=== PATIENT | male | born 1960 | race Caucasian/White ===

== ENCOUNTER 2021-10-13 14:06 | Inpatient (IN) | payer OTHER ==
[~2021-10-13] VITALS: Ht 172.7 cm; Wt 91.8 kg
[2021-10-13 15:06] LABS: Influenza A, PCR NEGATIVE (NEGATIVE); Influenza B, PCR NEGATIVE (NEGATIVE); Resp Syncytial Virus, PCR NEGATIVE (NEGATIVE); SARS-Cov-2 (COVID-19) PCR, MMC NEGATIVE (NEGATIVE)
[2021-10-13 15:26] LABS: International Normalized Ratio 1.13; Prothrombin Time Results 11.8 Sec (9.7-11.5)
[2021-10-13 15:30] LABS: Alanine Aminotransfer (ALT/SGP 156 U/L (12-78); Albumin, Blood 2.6 g/dL (3.4-5.0); Albumin/Globulin Ratio 0.5 (0.8-1.8); Alk Phos 240 U/L (50-136); Anion Gap 11 mmol/L (6-16); Aspartate Aminotrans (AST/SGOT 62 U/L (12-37); Bilirubin, Total 2.8 mg/dL (0.1-1.0); Blood Urea Nitrogen 23 mg/dL (8-24); Bun/Creatinine Ratio 24.4 (12.0-20.0); CO2, Blood 26 mmol/L (21-32); Calcium, Blood 10.1 mg/dL (8.5-10.1); Chloride, Blood 94 mmol/L (98-108); Creatinine, Blood 0.94 mg/dL (0.60-1.20); Globulin, Blood 5.4 g/dL (2.2-4.0); Glomerular Filtration Rate >60 (60-); Glucose, Blood 216 mg/dL (70-99); Potassium, Blood 3.6 mmol/L (3.5-5.5); Sodium, Blood 131 mmol/L (136-145)
[2021-10-13 15:40] LABS: Hematocrit 43.4 % (37.0-53.0); Hemoglobin 14.5 g/dL (13.5-17.5); Mean Corpuscular HGB 27.2 pg (26.0-34.0); Mean Corpuscular HGB Conc 33.4 g/dL (31.5-36.5); Mean Corpuscular Volume 81 fL (80-100); Mean Platelet Volume 11.1 fL (9.1-12.4); Platelet Count 210 K/mm3 (150-400); RDW Coefficient Variation 13.8 % (11.7-14.2); RDW Standard Deviation 40.7 fL (35.1-46.3); Red Blood Cell Count 5.33 M/mm3 (4.30-5.90); White Blood Cell Count 16.03 K/mm3 (4.00-11.30)
[2021-10-13 16:35] LABS: Source, Urine Clean Catch
[2021-10-13] MEDS ORDERED: Enalapril Malea20 MG PO (17:19)
[2021-10-13] MEDS ORDERED: TRAM50 PO (17:19)
[2021-10-13] MEDS ORDERED: TIZA4 PO (17:19)
[2021-10-13] MEDS ORDERED: OXYCODONE-ACET1 EAC3 PO (17:19)
[2021-10-13] MEDS ORDERED: MELO7.5 PO (17:20)
[2021-10-13 17:21] LABS: Blood, Urine 5+ (Neg); Glucose Qualitative, Urine 4+ (Neg); Ketones, Urine Neg (Neg); Leukocyte Esterase, Urine 3+ (Neg); Nitrite, Urine Pos (Neg); Protein, Urine 3+ (Neg); Urobilinogen, Urine 3+ (Normal)
[2021-10-13 17:22] LABS: Appearance, Urine Cloudy (Clear); Bilirubin, Urine 2+ (Neg); Color, Urine Amber (P-Yellow)
[2021-10-13 17:23] LABS: Bacteria Many /hpf; Red Blood Cells, Urine 25-50 /hpf (0-2); Squamous Epithelial Cells Few /hpf (Few)
[2021-10-13 17:24] LABS: Amorphous Heavy (0-Heavy); Granular Casts Rare /lpf (0); Hyaline Casts Rare /lpf (0-2); Mucus Light (0-Heavy)
[2021-10-13 17:31] LABS: BAND PERCENT MAN 11 % (0-8); BASOPHILS PERCENT MAN 0 % (0-2); EOSINOPHILS PERCENT MAN 0 % (0-6); LYMPHOCYTES ABSOLUTE MAN 0.64 K/mm3 (0.84-5.20); LYMPHOCYTES PERCENT MAN 4 % (21-46); METAMYELOCYTE ABSOLUTE MAN 0.48 K/mm3 (0.00-0.00); METAMYELOCYTE PERCENT MAN 3 % (0-0); MONOCYTES ABSOLUTE MAN 1.44 K/mm3 (0.16-1.47); MONOCYTES PERCENT MAN 9 % (4-13); NEUTROPHILS ABSOLUTE MAN 13.46 K/mm3 (1.96-9.15); SEG NEUTROPHILS PERCENT MAN 73 % (41-73); TOTAL CELLS COUNTED 100
[2021-10-13 17:41] LABS: Magnesium, Blood 1.7 mg/dL (1.6-2.4)
[2021-10-13 21:52] LABS: Automated CSF WBC Count 0.096 K/mm3 (0-5); WBC Count, CSF 96 /mm3 (0-5)
[2021-10-13 22:04] LABS: Appearance, CSF Clear (Clear); Color, CSF No Color (No Color)
[2021-10-13 22:05] LABS: Glucose, CSF 98 mg/dL (40-70); RBC Count, CSF 1240 /mm3 (0-0)
[2021-10-13 22:50] LABS: Monocytes, CSF 5 % (15-45); Neutrophils, CSF 95 % (0-6)
--- NOTE | 2021-10-14 02:55 | NUR ---
ADMISSION NOTE/SHIFT SUMMARY PATIENT ADMITTED TO MEDICAL UNIT PRESENT TO DROP THE PATIENT ADMITED WITH LEFT SHOULDER PAIN AND STIFF NECK.AOX4 ABLE TO ANSWER QUESTION DURING ASSESSMENT WITH HELP SKIN CHECK DONE REDNESS AND SWELLING TO LEFT ELBOW WARM TO TOUCH NON OPEN.C/O PAIN 7/10 SCHEDUEL OXYCODONE X 1 DOSE ADM WITH POSTIVE EFFECT.ON CONTNUES TELE BOX 25 .VANCOMYCIN AND AZITHROMYCIN IV ADM APON ARRIVAL.PT ASSISTED WITH CARE DUE TO PAIN TO LEFT HAND.
--- NOTE | 2021-10-14 04:12 | NUR ---
CRITICAL LABS ALL 4 BLOOD CULTURE WITH GRAM POSITIVE IN CLUSTER DR RANDOLPH MADE AWARE NEW ORDER TO CONT WITH VANCOMYCIN
[2021-10-14 04:56] LABS: Hematocrit 35.8 % (37.0-53.0); Hemoglobin 11.9 g/dL (13.5-17.5); Mean Corpuscular HGB 27.3 pg (26.0-34.0); Mean Corpuscular HGB Conc 33.2 g/dL (31.5-36.5); Mean Corpuscular Volume 82 fL (80-100); Platelet Count 189 K/mm3 (150-400); RDW Coefficient Variation 14.1 % (11.7-14.2); RDW Standard Deviation 41.8 fL (35.1-46.3); Red Blood Cell Count 4.36 M/mm3 (4.30-5.90); White Blood Cell Count 17.22 K/mm3 (4.00-11.30)
[2021-10-14 05:52] LABS: Alanine Aminotransfer (ALT/SGP 97 U/L (12-78); Albumin, Blood 1.9 g/dL (3.4-5.0); Albumin/Globulin Ratio 0.5 (0.8-1.8); Alk Phos 164 U/L (50-136); Anion Gap 6 mmol/L (6-16); Aspartate Aminotrans (AST/SGOT 31 U/L (12-37); Bilirubin, Total 1.4 mg/dL (0.1-1.0); Blood Urea Nitrogen 27 mg/dL (8-24); Bun/Creatinine Ratio 22.5 (12.0-20.0); CO2, Blood 25 mmol/L (21-32); Calcium, Blood 8.4 mg/dL (8.5-10.1); Chloride, Blood 103 mmol/L (98-108); Globulin, Blood 4.2 g/dL (2.2-4.0); Glomerular Filtration Rate >60 (60-); Glucose, Blood 172 mg/dL (70-99); Potassium, Blood 3.7 mmol/L (3.5-5.5); Sodium, Blood 134 mmol/L (136-145); Total Protein, Blood 6.1 g/dL (6.4-8.2)
[2021-10-14 06:05] LABS: BAND PERCENT MAN 11 % (0-8); BASOPHILS PERCENT MAN 0 % (0-2); EOSINOPHILS ABSOLUTE MAN 0.17 K/mm3 (0.00-0.68); EOSINOPHILS PERCENT MAN 1 % (0-6); LYMPHOCYTES ABSOLUTE MAN 1.54 K/mm3 (0.84-5.20); LYMPHOCYTES PERCENT MAN 9 % (21-46); MONOCYTES ABSOLUTE MAN 0.86 K/mm3 (0.16-1.47); MONOCYTES PERCENT MAN 5 % (4-13); NEUTROPHILS ABSOLUTE MAN 14.63 K/mm3 (1.96-9.15); SEG NEUTROPHILS PERCENT MAN 74 % (41-73); TOTAL CELLS COUNTED 100
--- NOTE | 2021-10-14 18:48 | NUR ---
SHIFT SUMMARY PT UP TO BATHROOM WITH 1 PERSON ASSIST. KEEPING L ARM STILL IN BED. DIFFICULTY WITH MOVING NECK TOO MUCH DUE TO DISCOMFORT. ORDERED ONLY SMALL AMOUNTS OF FOOD FOR MEALS. DISCUSSED IMPORTANCE OF EATING DESPITE NOT FEELING WELL. DRINKING FLUIDS WHEN OFFERED BUT PREFERS ICE CHIPS. DRINKING ENSURE WHEN OFFERED. L ELBOW WITH REDNESS AND WARMTH.
--- NOTE | 2021-10-15 05:34 | NUR ---
SHIFT SUMMARY PATIENT CONT ABT/IV VANCOMYCIN DECRESSED REDNESS TO HIS LEFT ELBOW ABLE TO MOVE THE HAND WITH LITTLE DISCORMFORT NO ACUTE CHANGE IN THIS SHIFT ASSISTED WITH URINAL.
[2021-10-15 07:25] LABS: BASOPHILS ABSOLUTE AUTO 0.17 K/mm3 (0.00-0.23); BASOPHILS PERCENT AUTO 1 % (0-2); Hematocrit 34.7 % (37.0-53.0); Hemoglobin 11.6 g/dL (13.5-17.5); LYMPHOCYTES ABSOLUTE AUTO 1.44 K/mm3 (0.84-5.20); LYMPHOCYTES PERCENT AUTO 7 % (21-46); MONOCYTES ABSOLUTE AUTO 1.53 K/mm3 (0.16-1.47); MONOCYTES PERCENT AUTO 7 % (4-13); Mean Corpuscular HGB 27.6 pg (26.0-34.0); Mean Corpuscular HGB Conc 33.4 g/dL (31.5-36.5); Mean Corpuscular Volume 82 fL (80-100); Mean Platelet Volume 10.7 fL (9.1-12.4); Platelet Count 233 K/mm3 (150-400); RDW Coefficient Variation 14.5 % (11.7-14.2); RDW Standard Deviation 43.2 fL (35.1-46.3); Red Blood Cell Count 4.21 M/mm3 (4.30-5.90); White Blood Cell Count 21.05 K/mm3 (4.00-11.30)
[2021-10-15 07:30] LABS: EOSINOPHILS PERCENT AUTO 1 % (0-6); IMMATURE GRAN ABSOLUTE AUTO 0.33 K/mm3 (0.00-0.10); IMMATURE GRAN PERCENT AUTO 2 % (0-1); NEUTROPHILS ABSOLUTE AUTO 17.38 K/mm3 (1.96-9.15); NEUTROPHILS PERCENT AUTO 83 % (41-73)
[2021-10-15 07:47] LABS: Alanine Aminotransfer (ALT/SGP 81 U/L (12-78); Albumin, Blood 1.7 g/dL (3.4-5.0); Albumin/Globulin Ratio 0.4 (0.8-1.8); Alk Phos 164 U/L (50-136); Anion Gap 5 mmol/L (6-16); Aspartate Aminotrans (AST/SGOT 28 U/L (12-37); Bilirubin, Total 0.9 mg/dL (0.1-1.0); Blood Urea Nitrogen 27 mg/dL (8-24); Bun/Creatinine Ratio 20.6 (12.0-20.0); CO2, Blood 27 mmol/L (21-32); Calcium, Blood 8.5 mg/dL (8.5-10.1); Chloride, Blood 107 mmol/L (98-108); Creatinine, Blood 1.31 mg/dL (0.60-1.20); Globulin, Blood 4.6 g/dL (2.2-4.0); Glomerular Filtration Rate 55 (60-); Glucose, Blood 176 mg/dL (70-99); Potassium, Blood 3.7 mmol/L (3.5-5.5); Sodium, Blood 139 mmol/L (136-145); Total Protein, Blood 6.3 g/dL (6.4-8.2)
[2021-10-15 08:08] LABS: Vancomycin, Trough 20.7 ug/mL (5.0-10.0)
--- NOTE | 2021-10-15 18:00 | NUR ---
SHIFT SUMMARY PT UP TO BATHROOM WITH 1 PERSON ASSIST TO SAFETY BUT PT APPEARS TO BE STABLE ON HIS FEET. EATING BETTER TODAY BUT STILL POOR APPETITE. WILL DRINK AN ENSURE FOR EXTRA CALORIC SUPPORT. MEDICATED ONCE FOR PAIN WITH SOME HELP AND K PAD FOR NECK HAS HELPED "SOME". FOUND USING L ARM MORE TODAY THAN YESTERDAY WELL.
--- NOTE | 2021-10-16 06:33 | NUR ---
SHIFT SUMMARY AOX3 ABLE TO VOICE NEEDS NO ACUTE CHANGE IN THIS SHIFT CONT VANCOMYCIN IV 1000MG BID .SWELLING TO HIS LEFT ELBOW AND REDNESS HAS DECREASED C/O NECK PAIN X1 REPPOSTION AND OXYCODON ADM PER ORDER WITH POSTIVE EFFECT .
[2021-10-16 08:32] LABS: Hematocrit 33.7 % (37.0-53.0); Hemoglobin 11.1 g/dL (13.5-17.5); Mean Corpuscular HGB 27.4 pg (26.0-34.0); Mean Corpuscular HGB Conc 32.9 g/dL (31.5-36.5); Mean Corpuscular Volume 83 fL (80-100); Mean Platelet Volume 10.7 fL (9.1-12.4); Platelet Count 257 K/mm3 (150-400); RDW Coefficient Variation 14.6 % (11.7-14.2); Red Blood Cell Count 4.05 M/mm3 (4.30-5.90); White Blood Cell Count 20.88 K/mm3 (4.00-11.30)
[2021-10-16 08:50] LABS: Bun/Creatinine Ratio 24.8 (12.0-20.0); Calcium, Blood 8.5 mg/dL (8.5-10.1); Creatinine, Blood 1.29 mg/dL (0.60-1.20); Potassium, Blood 3.7 mmol/L (3.5-5.5)
[2021-10-16 08:55] LABS: Vancomycin, Trough 19.1 ug/mL (5.0-10.0)
--- NOTE | 2021-10-16 18:55 | NUR ---
SHIFT SUMMARY PT UP TO BATHROOM INDEPENDENTLY TO ONE PERSON ASSIST. STILL WITH POOR APPETITE AND NEEDING ENCOURAGEMENT TO EAT. MEDICATED FOR PAIN ONCE ONLY. HEAT APPLIED TO L NECK FOR COMFORT. SLEEPING ON AND OFF TODAY. NO REDNESS OR EXCESS WARMTH NOTED TO L ELOW.
[2021-10-17 06:36] LABS: Hematocrit 33.2 % (37.0-53.0); Hemoglobin 11.1 g/dL (13.5-17.5); Mean Corpuscular HGB 27.5 pg (26.0-34.0); Mean Corpuscular HGB Conc 33.4 g/dL (31.5-36.5); Mean Corpuscular Volume 82 fL (80-100); Mean Platelet Volume 10.2 fL (9.1-12.4); Platelet Count 291 K/mm3 (150-400); RDW Coefficient Variation 14.5 % (11.7-14.2); RDW Standard Deviation 43.7 fL (35.1-46.3); Red Blood Cell Count 4.04 M/mm3 (4.30-5.90)
--- NOTE | 2021-10-17 06:47 | NUR ---
SHIFT SUMMARY VANCOMYCIN D/C NEW ORDER CEFAZOLIN TID NO REACTION NOTED TOLARATED WELL.PO FLUIDS ENCOURAGED AND OFFERED .0630 [facility] RECEIVED X2 BOTTLE BLOOD CULTURE GRAM POSITIVE .IN COME NURSE NOTIFIED
[2021-10-17 06:55] LABS: Bun/Creatinine Ratio 22.4 (12.0-20.0); Calcium, Blood 8.4 mg/dL (8.5-10.1); Creatinine, Blood 1.43 mg/dL (0.60-1.20); Potassium, Blood 3.7 mmol/L (3.5-5.5)
[2021-10-17 06:57] LABS: BASOPHILS PERCENT MAN 0 % (0-2); EOSINOPHILS ABSOLUTE MAN 0.15 K/mm3 (0.00-0.68); EOSINOPHILS PERCENT MAN 1 % (0-6); LYMPHOCYTES ABSOLUTE MAN 1.42 K/mm3 (0.84-5.20); LYMPHOCYTES PERCENT MAN 9 % (21-46); MONOCYTES ABSOLUTE MAN 0.94 K/mm3 (0.16-1.47); MONOCYTES PERCENT MAN 6 % (4-13); MYELOCYTE ABSOLUTE MAN 0.31 K/mm3 (0.00-0.00); MYELOCYTE PERCENT MAN 2 % (0-0); NEUTROPHILS ABSOLUTE MAN 12.95 K/mm3 (1.96-9.15); SEG NEUTROPHILS PERCENT MAN 82 % (41-73); TOTAL CELLS COUNTED 100
--- NOTE | 2021-10-17 17:27 | NUR ---
RECEIVED IV ABX ORDERED PER E-MAR. VOICED TO NO C/O PAIN THROUGHOUT THE SHIFT. VOIDING WITHOUT DIFFICULTY. AAO X 4. US OF L ARM AND CHEST CT COMPLETED TODAY. TOLERATED PO FOODS AND FLUIDS. WILL MONITOR.
[2021-10-18 05:13] LABS: Hematocrit 36.7 % (37.0-53.0); Hemoglobin 11.9 g/dL (13.5-17.5); Mean Corpuscular HGB 27.2 pg (26.0-34.0); Mean Corpuscular HGB Conc 32.4 g/dL (31.5-36.5); Mean Corpuscular Volume 84 fL (80-100); Mean Platelet Volume 10.4 fL (9.1-12.4); Platelet Count 327 K/mm3 (150-400); RDW Coefficient Variation 14.6 % (11.7-14.2); RDW Standard Deviation 44.6 fL (35.1-46.3); Red Blood Cell Count 4.37 M/mm3 (4.30-5.90); White Blood Cell Count 17.16 K/mm3 (4.00-11.30)
[2021-10-18 05:37] LABS: Albumin, Blood 1.7 g/dL (3.4-5.0); Albumin/Globulin Ratio 0.3 (0.8-1.8); Bilirubin, Total 0.5 mg/dL (0.1-1.0); Bun/Creatinine Ratio 22.4 (12.0-20.0); Calcium, Blood 8.4 mg/dL (8.5-10.1); Creatinine, Blood 1.34 mg/dL (0.60-1.20); Globulin, Blood 5.1 g/dL (2.2-4.0); Potassium, Blood 3.6 mmol/L (3.5-5.5); Total Protein, Blood 6.8 g/dL (6.4-8.2)
--- NOTE | 2021-10-18 07:12 | NUR ---
SHIFT SUMMARY PATIENT ALERT AND ORIENTED. MEDICATED PER EMAR FOR PAIN. NO COMPLAINTS OF SHORTNESS OF BREATH. NO ACUTE ISSUES NOTED OVERNIGHT. CALL LIGHT WITHIN REACH. REPORT GIVEN TO ONCOMING RN.
--- NOTE | 2021-10-18 16:32 | NUR ---
MEDICATED X 1 FOR PAIN. SEE E-MAR. ORTHOPEDIC CONSULT PENDING. PATIENT AMBULATED TO THE BATHROOM. VOIDED AND HAD A BM. TOLERATED PO FOOD AND FLUIDS. AAOX 4. PLEASANT AND COOPERATIVE. WILL MONITOR.
[2021-10-19 05:55] LABS: BASOPHILS ABSOLUTE AUTO 0.11 K/mm3 (0.00-0.23); BASOPHILS PERCENT AUTO 1 % (0-2); EOSINOPHILS ABSOLUTE AUTO 0.29 K/mm3 (0.00-0.68); EOSINOPHILS PERCENT AUTO 2 % (0-6); Hematocrit 32.4 % (37.0-53.0); Hemoglobin 10.5 g/dL (13.5-17.5); IMMATURE GRAN ABSOLUTE AUTO 0.25 K/mm3 (0.00-0.10); IMMATURE GRAN PERCENT AUTO 2 % (0-1); LYMPHOCYTES ABSOLUTE AUTO 2.08 K/mm3 (0.84-5.20); LYMPHOCYTES PERCENT AUTO 12 % (21-46); MONOCYTES ABSOLUTE AUTO 1.24 K/mm3 (0.16-1.47); MONOCYTES PERCENT AUTO 7 % (4-13); Mean Corpuscular HGB 27.5 pg (26.0-34.0); Mean Corpuscular HGB Conc 32.4 g/dL (31.5-36.5); Mean Corpuscular Volume 85 fL (80-100); NEUTROPHILS ABSOLUTE AUTO 13.14 K/mm3 (1.96-9.15); NEUTROPHILS PERCENT AUTO 77 % (41-73); Platelet Count 401 K/mm3 (150-400); RDW Coefficient Variation 14.5 % (11.7-14.2); RDW Standard Deviation 44.6 fL (35.1-46.3); Red Blood Cell Count 3.82 M/mm3 (4.30-5.90); White Blood Cell Count 17.11 K/mm3 (4.00-11.30)
[2021-10-19 06:15] LABS: Bun/Creatinine Ratio 19.8 (12.0-20.0); Calcium, Blood 8.1 mg/dL (8.5-10.1); Creatinine, Blood 1.26 mg/dL (0.60-1.20); Potassium, Blood 3.8 mmol/L (3.5-5.5)
--- NOTE | 2021-10-19 18:16 | NUR ---
MEDICATED PER E-MAR FOR C/O PAIN. AAO X 4. HAD BM AND VOIDED WITHOUT DIFFICULTY. ORTHOPEDIC CONSULT STILL PENDING, SPOKE WITH DR. FALL ABOUT IT TODAY. RECEIVED IV ABX PER E-MAR. ECHO ORDERED AND PENDING. NO COMPLAINTS VOICED OR NEEDS AT THIS TIME. WILL MONITOR.
[2021-10-20 07:24] LABS: BASOPHILS PERCENT AUTO 1 % (0-2); EOSINOPHILS ABSOLUTE AUTO 0.23 K/mm3 (0.00-0.68); EOSINOPHILS PERCENT AUTO 2 % (0-6); Hematocrit 34.7 % (37.0-53.0); Hemoglobin 11.1 g/dL (13.5-17.5); IMMATURE GRAN ABSOLUTE AUTO 0.15 K/mm3 (0.00-0.10); IMMATURE GRAN PERCENT AUTO 1 % (0-1); LYMPHOCYTES ABSOLUTE AUTO 1.63 K/mm3 (0.84-5.20); LYMPHOCYTES PERCENT AUTO 11 % (21-46); MONOCYTES ABSOLUTE AUTO 0.89 K/mm3 (0.16-1.47); MONOCYTES PERCENT AUTO 6 % (4-13); Mean Corpuscular HGB 27.4 pg (26.0-34.0); Mean Corpuscular Volume 86 fL (80-100); Mean Platelet Volume 9.6 fL (9.1-12.4); NEUTROPHILS ABSOLUTE AUTO 11.62 K/mm3 (1.96-9.15); NEUTROPHILS PERCENT AUTO 80 % (41-73); Platelet Count 468 K/mm3 (150-400); RDW Coefficient Variation 14.5 % (11.7-14.2); RDW Standard Deviation 45.4 fL (35.1-46.3); Red Blood Cell Count 4.05 M/mm3 (4.30-5.90); White Blood Cell Count 14.62 K/mm3 (4.00-11.30)
[2021-10-20 07:48] LABS: Alanine Aminotransfer (ALT/SGP 35 U/L (12-78); Albumin, Blood 1.8 g/dL (3.4-5.0); Albumin/Globulin Ratio 0.4 (0.8-1.8); Alk Phos 124 U/L (50-136); Anion Gap 7 mmol/L (6-16); Aspartate Aminotrans (AST/SGOT 43 U/L (12-37); Bilirubin, Total 0.3 mg/dL (0.1-1.0); Blood Urea Nitrogen 22 mg/dL (8-24); Bun/Creatinine Ratio 18.2 (12.0-20.0); CO2, Blood 28 mmol/L (21-32); Calcium, Blood 8.5 mg/dL (8.5-10.1); Chloride, Blood 107 mmol/L (98-108); Creatinine, Blood 1.21 mg/dL (0.60-1.20); Glomerular Filtration Rate >60 (60-); Glucose, Blood 139 mg/dL (70-99); Sodium, Blood 142 mmol/L (136-145); Total Protein, Blood 6.8 g/dL (6.4-8.2)
--- NOTE | 2021-10-20 11:04 | NUR ---
LOWELL conklin handoff of patient care from LOWELL Babin Patient was in bed asleep and did not appear to be in any distress
--- NOTE | 2021-10-20 18:19 | NUR ---
Patient was alert and orient. His affect was restricted and mood was congruent. Patient c/o pain and did recv Percocet 1 tab with morning meds. He was ambulatory to the bathroom and had BM this shift. He continued on ABX and had no requests at this time
--- NOTE | 2021-10-21 04:40 | NUR ---
SHIFT SUMMARY 60 YR M ADMITTED ON 10/13/21 FOR SEVERE SEPSIS. FULL CODE. NO ACUTE CHANGES OVERNIGHT. PT SLEPT MOST OF THE SHIFT SO THIS NURSE HAD VERY LITTLE INTERACTION WITH HIM. HE IS SCHEDULED FOR ASP/INJ JOINT/INTERIM IN THE MORNING SO LOVENOX AND ANY BLOOD THINNERS WILL BE HELD.
--- NOTE | 2021-10-21 11:21 | NUR ---
LAB CALLED NEEDING ORDERS FOR BODY FLUID COLLECTED WITH US GUIDED ASPIRATION TODAY. SPOKE WITH DR. CARLSON ABOUT THIS. STATES SHE WILL PLACE ORDERS.
--- NOTE | 2021-10-21 12:32 | NUR ---
S/P US GUIDED ASPIRATION TO L UPPER CHEST AREA. BANDAID CLEAN DRY AND INTACT. MEDICATED FOR C/O PAIN PER E-NOV. WILL MONITOR.
--- NOTE | 2021-10-21 16:53 | NUR ---
S/P ULTRASOUND GUIDED ASPIRATION OF ABSCESS TODAY. BANDAID INTACT. MEDICATED FOR C/O PAIN PER E-MAR. PLEASANT AND COOPERATIVE. TOLERATED PO FOOD AND FLUIDS WELL. RECEIVED IV ABX PER E-NOV. WILL MONITOR.
--- NOTE | 2021-10-21 18:44 | NUR ---
O2 SAT 91%, HR 77. O2 AT 7 LPM CANNULA.
--- NOTE | 2021-10-22 04:57 | NUR ---
SHIFT SUMMARY NO ACUTE CHANGES THIS SHIFT. AOX4. VSS. REPORTS 3/10 PAIN L SIDE NECK, GAVE PERCOCET 1X & PT DENIED ANY FURTHER PAIN. STATED L SIDE CHEST/NECK HAS FELT BETTER SINCE FLUID WAS REMOVED FOR CULTURES. L SIDE NECK RED. DENIES N/V OR SOB. AWAITING CX RESULTS. CALL LIGHT IN REACH, [facility].
[2021-10-22 05:36] LABS: BASOPHILS ABSOLUTE AUTO 0.12 K/mm3 (0.00-0.23); BASOPHILS PERCENT AUTO 1 % (0-2); EOSINOPHILS ABSOLUTE AUTO 0.23 K/mm3 (0.00-0.68); EOSINOPHILS PERCENT AUTO 2 % (0-6); Hematocrit 34.1 % (37.0-53.0); Hemoglobin 10.5 g/dL (13.5-17.5); IMMATURE GRAN ABSOLUTE AUTO 0.05 K/mm3 (0.00-0.10); IMMATURE GRAN PERCENT AUTO 0 % (0-1); LYMPHOCYTES ABSOLUTE AUTO 1.77 K/mm3 (0.84-5.20); LYMPHOCYTES PERCENT AUTO 15 % (21-46); MONOCYTES ABSOLUTE AUTO 0.74 K/mm3 (0.16-1.47); MONOCYTES PERCENT AUTO 6 % (4-13); Mean Corpuscular HGB 26.7 pg (26.0-34.0); Mean Corpuscular HGB Conc 30.8 g/dL (31.5-36.5); Mean Corpuscular Volume 87 fL (80-100); Mean Platelet Volume 9.4 fL (9.1-12.4); NEUTROPHILS ABSOLUTE AUTO 9.23 K/mm3 (1.96-9.15); NEUTROPHILS PERCENT AUTO 76 % (41-73); Platelet Count 545 K/mm3 (150-400); RDW Coefficient Variation 14.6 % (11.7-14.2); RDW Standard Deviation 46.3 fL (35.1-46.3); Red Blood Cell Count 3.93 M/mm3 (4.30-5.90); White Blood Cell Count 12.14 K/mm3 (4.00-11.30)
[2021-10-22 05:58] LABS: Anion Gap 7 mmol/L (6-16); Blood Urea Nitrogen 19 mg/dL (8-24); Bun/Creatinine Ratio 16.1 (12.0-20.0); CO2, Blood 27 mmol/L (21-32); Calcium, Blood 8.1 mg/dL (8.5-10.1); Chloride, Blood 107 mmol/L (98-108); Creatinine, Blood 1.18 mg/dL (0.60-1.20); Glomerular Filtration Rate >60 (60-); Glucose, Blood 136 mg/dL (70-99); Potassium, Blood 4.2 mmol/L (3.5-5.5); Sodium, Blood 141 mmol/L (136-145)
--- NOTE | 2021-10-22 17:11 | NUR ---
PATIENT OFF UNIT FOR CT SCAN, WILL ATTEMPT TO GET MRI DONE WELL.
--- NOTE | 2021-10-22 17:41 | NUR ---
SHIFT SUMMARY: NO ACUTE EVENTS. STATED PAIN LEVEL WAS 1-2/10, DENIED NEED FOR PAIN MEDICATIONS. BIOPSY SITE ON L ANTERIOR NECK COVERED WITH BAND AID, TRACE EDEMA. ON ROOM AIR, NO COUGH. AFEBRILE, VSS. AWAITING ABSCESS CULTURE RESULTS. HAD CT CHEST/ABD AND MRI OF SPINE. INDEPENDENT IN ROOM.
--- NOTE | 2021-10-22 21:02 | NUR ---
PHYSICIAN COMMUNICATION CONTACTED [employer] PHYSICIAN, DR ECNISO, TO NOTIFY HIM THAT THE PATIENT WAS REQUESTING TO HAVE SOMETHING TO HELP HIM SLEEP. DR ENCISO ORDERED ATIVAN PO 0.5 MG X1.
--- NOTE | 2021-10-23 06:15 | NUR ---
SHIFT SUMMARY PATIENT ALERT AND ORIENTED. HAD NO COMPLAINTS OF PAIN OR SHORTNESS OF BREATH. NO ACUTE ISSUES NOTED OVERNIGHT. CALL LIGHT WITHIN REACH. REPORT GIVEN TO ONCOMING RN.
[2021-10-23 06:26] LABS: BASOPHILS PERCENT AUTO 1 % (0-2); EOSINOPHILS ABSOLUTE AUTO 0.25 K/mm3 (0.00-0.68); EOSINOPHILS PERCENT AUTO 2 % (0-6); Hematocrit 34.5 % (37.0-53.0); Hemoglobin 10.8 g/dL (13.5-17.5); IMMATURE GRAN ABSOLUTE AUTO 0.06 K/mm3 (0.00-0.10); IMMATURE GRAN PERCENT AUTO 1 % (0-1); LYMPHOCYTES PERCENT AUTO 14 % (21-46); MONOCYTES ABSOLUTE AUTO 0.78 K/mm3 (0.16-1.47); MONOCYTES PERCENT AUTO 7 % (4-13); Mean Corpuscular HGB 27.1 pg (26.0-34.0); Mean Corpuscular HGB Conc 31.3 g/dL (31.5-36.5); Mean Corpuscular Volume 87 fL (80-100); Mean Platelet Volume 9.4 fL (9.1-12.4); NEUTROPHILS ABSOLUTE AUTO 8.78 K/mm3 (1.96-9.15); NEUTROPHILS PERCENT AUTO 76 % (41-73); Platelet Count 605 K/mm3 (150-400); RDW Coefficient Variation 14.4 % (11.7-14.2); RDW Standard Deviation 45.4 fL (35.1-46.3); Red Blood Cell Count 3.99 M/mm3 (4.30-5.90); White Blood Cell Count 11.57 K/mm3 (4.00-11.30)
[2021-10-23 06:33] LABS: Anion Gap 4 mmol/L (6-16); Blood Urea Nitrogen 14 mg/dL (8-24); Bun/Creatinine Ratio 11.6 (12.0-20.0); CO2, Blood 30 mmol/L (21-32); Calcium, Blood 8.9 mg/dL (8.5-10.1); Chloride, Blood 108 mmol/L (98-108); Creatinine, Blood 1.21 mg/dL (0.60-1.20); Glomerular Filtration Rate >60 (60-); Glucose, Blood 126 mg/dL (70-99); Potassium, Blood 3.9 mmol/L (3.5-5.5); Sodium, Blood 142 mmol/L (136-145)
--- NOTE | 2021-10-23 09:15 | NUR ---
DISCUSSED WITH PT FINDINGS ON MRI DONE YESTERDAY, PLAN FOR TRANSFER TO HIGHER LEVEL OF CARE. 0920- SPOKE TO PT'S YOSELIN, GAVE HER UPDATE ON MRI FINDINGS, PLAN FOR TRANSFER. THIS AUTHOR FOUND THAT PT WILL BE HAVING SURGERY TODAY. REPORTED THIS TO PT AND HIS . EXPRESSED FRUSTRATION THAT SHE HAD RECEIVED NO REPORT FORM PROVIDER OVER THE PAST SEVERAL DAYS. CALLED DR. RODRIGUEZ, SHE SAW PATIENT.
--- NOTE | 2021-10-23 10:16 | NUR ---
PATIENT TRANSFERRED TO [facility]. TELEPHONE REPORT GIVEN TO KHADIJAH ETIENNE @ [phone]. OFF UNIT AT 1015 VIA [employer]. NO PERSONAL BELONGINGS LEFT BEHIND IN ROOM.
[2021-10-23 11:19] LABS: Influenza A, PCR NEGATIVE (NEGATIVE); Influenza B, PCR NEGATIVE (NEGATIVE); Resp Syncytial Virus, PCR NEGATIVE (NEGATIVE); SARS-Cov-2 (COVID-19) PCR, MMC NEGATIVE (NEGATIVE)
== END 2021-10-23 10:13 | disposition short-term general hospital (02) | DRG 871 ==
LOC: ER 14:06 → MEDS 21:01
PROVIDERS: Emergency Medicine; Family Medicine; Internal Medicine; Physician Assistant; Student in an Organized Health Care Education/Training Program; ADMIT Internal Medicine
PROC: B01BYZZ Fluoroscopy of Spinal Cord using Other Contrast (ICD-10-PCS; principal; 2021-10-13)
PROC: 009U3ZX Drainage of Spinal Canal, Percutaneous Approach, Diagnostic (ICD-10-PCS; 2021-10-13)
PROC: 0R9 Upper Joints, Drainage (ICD-10-PCS; 2021-10-21)
PROC: 3E03329 Introduction of Other Anti-infective into Peripheral Vein, Percutaneous Approach (ICD-10-PCS; 2021-10-22)
DX: A41.02 Sepsis due to Methicillin resistant Staphylococcus aureus (principal); G06.2 Extradural and subdural abscess, unspecified; G92.8 Other toxic encephalopathy; L03.116 Cellulitis of left lower limb; N39.0 Urinary tract infection, site not specified; M00.022 Staphylococcal arthritis, left elbow; E87.2 Acidosis; Z20.822 Contact with and (suspected) exposure to COVID-19; R65.20 Severe sepsis without septic shock; M25.48 Effusion, other site; M06.9 Rheumatoid arthritis, unspecified; I10 Essential (primary) hypertension; K76.0 Fatty (change of) liver, not elsewhere classified; B95.61 Methicillin susceptible Staphylococcus aureus infection as the cause of diseases classified elsewhere; Z79.899 Other long term (current) drug therapy
CPT/HCPCS: 0241U; 20606; 36415; 62270; 71045; 71260; 72156; 72157; 73201; 74177; 76705; 76882; 80048; 80053; 80202; 81001; 82945; 83605; 83690; 83735; 84145; 84157; 84484; 85007; 85025; 85027; 85610; 85651; 85730; 87040; 87070; 87075; 87077; 87086; 87147; 87186; 87205; 87529; 89051; 93005; 93010; 93306; 94762; 96365; 96366; 96375; 99285-25; A9270; A9579; J0456; J0690; J0696; J1170; J1650; J3370; J7030; J7050; Q9967